=== PATIENT | male | born 1960 | race Caucasian/White ===

== ENCOUNTER 2017-08-18 20:28 | Emergency (ER) | payer OTHER, MEDICARE ==
[~2017-08-18 20:28] MED LIST: AMBIEN 10MG10 MG PO; CELEBREX200 MG PO; CENTRUM SILVER1 TA1 PO; COLCHICINE0.6 MG PO; COUMADIN 3 MG TA3 MG PO; COUMADIN 6 MG TA6 MG PO; CRESTOR10 MG PO; CYMBALTA60 MG PO; FLONASE120 SPRAY/ NASB; GLUCOSAMINE & C1 CAP PO; HYDROXYCHLOROQ200 MG PO; LOSARTAN POTASS25 MG PO; METOPROLOL SUCC50 M1 PO; NORVASC 5MG TAB5 MG PO; RAPAFLO8 MG PO; ROPINIROLE HYDRO4 MG PO; SYMBICORT 160/41 PUF INH; VITAMIN D31000 IU PO
--- NOTE | 2017-08-18 21:27 | ED NOSE COMPLAINT ---
History of Present Illness General Chief Complaint: Epistaxis/Nasal Foreign Body Stated Complaint: "UM COUPLE OF DAYS NOSE BLEEDS" Source: patient Exam Limitations: no limitations Vital Signs & Intake/Output Vital Signs & Intake/Output Vital Signs Date Time Temp Pulse Resp B/P B/P Pulse O2 O2 Flow FiO2 Mean Ox Delivery Rate 08/18 2334 98.3 74 20 126/71 96 Room Air 08/18 2133 Room Air 08/185 98.1 78 22 130/73 95 ED Intake and Output 08/19 0000 08/18 1200 Intake Total 0 Output Total Balance 0 Intake, Oral 0 Allergies Coded Allergies: MDX - Opioid (Opioid) (Severe, ANAPHYLAXIS 06/02/15) Reconcile Medications Amlodipine (Norvasc 5MG Tab) 5 MG TAB 1 TAB PO DAILY BP (Reported) Budesonide/Formoterol Fumara (Symbicort 160-4.5 Mcg Inhaler) 160 MCG/4.5 MCG PUF 2 PUF INH BID RESPIRATORY (Reported) Celecoxib (Celebrex) 200 MG CAP 1 CAP PO DAILY PAIN/INFLAMMATION (Reported) Cholecalciferol (Vitamin D3) (Unknown Strength) TAB (Unknown Dose) PO DAILY SUPPLEMENT (Reported) Chondroitin Sulf/Glucosamine (Glucosamine & Chondroitin) 1 CAP CAP 1 CAP PO DAILY SUPPLEMENT (Reported) Colchicine 0.6 MG TAB 1 TAB PO DAILY HEART (Reported) DULOXETINE HCL (Cymbalta) 60 MG ECC 1 CAP PO DAILY NERVE PAIN (Reported) Fluticasone Propionate (Flonase) 120 SPRAY/BOT SPR 1 SPRAY NASB DAILY RESPIRATORY (Reported) Hydroxychloroquine Sulfate 200 MG TAB 1 TAB PO BID RA (Reported) Losartan Potassium 25 MG TAB 1 TAB PO DAILY BP (Reported) Metoprolol Succinate (Metoprolol Succinate XL) [address] 1 TAB PO DAILY HEART (Reported) Multivitamin, Minerals, and (Centrum Silver) 1 TAB TAB 1 TAB PO DAILY SUPPLEMENT (Reported) ROPINIROLE HCL (Ropinirole Hydrochloride) 4 MG TAB 1 TAB PO QPM RESTLESS LEGS (Reported) Rosuvastatin Calcium (Crestor) 10 MG TAB 10 MG PO QAM CHOLESTEROL (Reported) Silodosin (Rapaflo) 8 MG CAP 1 CAP PO DAILY PROSTATE (Reported) Warfarin Sodium (Coumadin) 3 MG TAB 1 TAB PO AD BLOOD THINNER (Reported) Warfarin Sodium (Coumadin) 6 MG TAB 1 TAB PO AD BLOOD THINNER (Reported) Zolpidem Tartrate (Ambien 10MG) 10 MG TAB 1 TAB PO QPM SLEEP (Reported) Triage Note: PER PT NOSE BLEEDS SEVERE FOR 5-10 MINUTES 2 X YESTERDAY WENT TO [facility] LAST NIGHT VIA EMS BUT BY THE TIME THEY SAW ME IT HAD STOPPED, OCCURRED X 2 TODAY. SIGNIFICANT OTHER REPORTS "COPIOUS AMTS" NO ACTIVE BLEEDING AT PRESENT DENIES BLOOD THINNERS. PTALSO REPORTS RT HIP SUBLUXATION SAT ON FLOOR THIS AM D/T AMT OF BLEEDING WAS TRYING TO AIM IN THE TIOLET AND SUBLUXED RT HIP HX OF MULTIPLE HIP REPLACEMENTS Triage Nurses Notes Reviewed? yes Onset: Abrupt Timing: recent history Severity: severe HPI: Patient is a 56-year-old male with a past medical history of repaired thoracic aortic aneurysm approximately 2 years ago, rheumatoid arthritis with bilateral hip replacement status post avascular necrosis chronic back pain who presents emergency room stating that yesterday he had spontaneous nontraumatic bilateral nosebleeds were he states that he had significant bleeding unresolved where he was seen at [facility] patient states that prior to being evaluated his nosebleed had stopped and no intervention was done. Patient states that today he had 2 episodes of nosebleeds that resolved 20 minutes after onset. Denies any history of trauma denies any anticoagulation use Denies any significant history of nosebleeds States yesterday he had a resolved fever Denies any current headache dizziness lightheaded sensation He does state that during the nosebleed he may need bent position on the floor when he stood up and felt his right hip pop where he does not recall a significant dislocation or he felt "something tear" Since patient has been complaining of severe right localized hip pain. Patient was able to ambulate with canes on arrival (Juni Perry) Past History Travel History Traveled to [place] past 21 day No Medical History Any Pertinent Medical History? see below for history Neurological: NONE EENT: NONE Cardiovascular: DESCENDING THORACIC ANEUR Respiratory: NONE Gastrointestinal: NONE Hepatic: NONE Renal: nephrolithiasis Musculoskeletal: rheumatoid arthritis, 5 TOTAL HIP REPL Psychiatric: NONE Endocrine: NONE Surgical History Surgical History: AORTIC ANEURYSM REPAIR Psychosocial History What is your primary language Nepali Tobacco Use: Never used Family History Hx Contributory? No (Juni Perry) Review of Systems Review of Systems Constitutional: Reports: see HPI. EENTM: Reports: see HPI. Respiratory: Reports: no symptoms. Cardiovascular: Reports: no symptoms. GI: Reports: no symptoms. Genitourinary: Reports: no symptoms. Musculoskeletal: Reports: see HPI. Skin: Reports: no symptoms. Neurological/Psychological: Reports: no symptoms. Hematologic/Endocrine: Reports: no symptoms. Immunologic/Allergic: Reports: no symptoms. All Other Systems: Reviewed and Negative (Juni Perry) Physical Exam Physical Exam General Appearance: anxious Head: atraumatic Eyes: Bilateral: normal appearance, PERRL. Nose: normal inspection Mouth/Throat: normal mouth inspection, pharynx normal Neck: normal inspection Cardiovascular/Respiratory: normal breath sounds, normal peripheral pulses, regular rate/rhythm Neurologic/Psych: no motor/sensory deficits, awake, alert Skin: intact, normal color Comments: Right hip normal inspection generalized point tenderness noted limited range of motion noted (Juni Perry) Progress Differential Diagnoses I considered the following diagnoses in my evaluation of the patient: [Fracture, hip strain, anemia, coagulation disorder, anterior epistasis posterior epistasis ] Plan of Care: Orders Procedure Date/time Status Add-on Test (ER Only) 08/18 2222 Active TROPONIN LEVEL 08/18 2145 Complete PARTIAL THROMBOPLASTIN TIME 08/18 2145 Complete PROTHROMBIN TIME 08/18 2145 Complete COMPREHENSIVE METABOLIC PANEL 08/18 2145 Complete CBC WITHOUT DIFFERENTIAL 08/18 2145 Complete EKG 08/18 2145 Active Laboratory Tests 08/18/17 2215: Anion Gap 14, Estimated GFR > 60, BUN/Creatinine Ratio 20.0, Glucose 126 H, Calcium 9.3, Total Bilirubin 0.3, AST 43, ALT 65, Alkaline Phosphatase 68, Troponin I 0.01, Total Protein 6.4, Albumin 4.3, Globulin 2.1, Albumin/Globulin Ratio 2.0, PT 12.6 H, INR 1.20 H, APTT 24 L, CBC w Diff NO MAN DIFF REQ, RBC 4.21 L, MCV 95.2 H, MCH 32.5 H, MCHC 34.1, RDW 13.4, Plt Count ND, Gran % 64.7, Lymphocytes % 24.6, Monocytes % 7.3, Eosinophils % 2.6, Basophils % 0.8, Absolute Granulocytes 4.5, Absolute Lymphocytes 1.7, Absolute Monocytes 0.5, Absolute Eosinophils 0.2, Absolute Basophils 0.1 Patient on initial examination had no active bleeding to his nares, nares were patent unremarkable oropharynx exam Patient was offered pain medications while in the emergency room and declined. due to recurrence of significant nosebleeds per history that while patient was in the emergency room even though there was no active bleeding of the nares patient was provided with gauze packing with soaked from then with direct pressure to improve coagulation of nose in the future, I discussed with patient intently on to apply direct pressure with gauze if future currents of nose bleeds do occur. Patient has unremarkable x-rays of right hip Patient was strongly advised to follow-up with discharge instructions and plan and he will comply. Upon discharge patient looks well no apparent distress and will comply with discharge instructions Diagnostic Imaging: Viewed by Me: Radiology Read. Radiology Impression: no acute abnormality, no fracture Initial ED EKG: normal p-waves, normal QRS complex, 69 BPM,NSR Comments: PATIENT: ROSEANNA SPANGLER PRESENT AGE: 56 PATIENT ACCOUNT NO: [id number] : 60 LOCATION: [facility] ORDERING PHYSICIAN: Juni SALTER SERVICE DATE: 08/18/17 EXAM TYPE: RAD - XRY-HIP 2-3 VIEWS, RIGHT EXAMINATION: XR HIP, RIGHT CLINICAL INFORMATION: Right hip pain. COMPARISON: Right hip radiographs 03/05/2013. TECHNIQUE: Knee radiographs of the right hip. FINDINGS: Right hip arthroplasty is intact. Hardware is well affixed and well aligned. No signs of periprosthetic lucency or fracture. Stable small ossification adjacent to the superior acetabulum. Soft tissues are otherwise unremarkable. IMPRESSION: Intact right hip arthroplasty. DICTATED BY: Julito Bhat MD DATE/TIME DICTATED:08/18/172247 WATER CONTROL SUPERVISOR:GIL DATE/TIME TRANSCRIBED:08/18/172247 CONFIDENTIAL, DO NOT COPY WITHOUT APPROPRIATE AUTHORIZATION. (Ángel SALTER,Juni) Departure Departure Disposition: HOME OR SELF CARE Condition: Stable Clinical Impression Primary Impression: Bleeding nose Secondary Impressions: Right hip pain Referrals: Sherri MOSCOSO,Fantasma Cervantes (PCP/Family) Sarthak López MD Additional Instructions: As discussed on Sunday follow-up with your primary care doctor and/or orthopedic doctor for further evaluation treatment and please provide them with copies of blood work and x-ray findings provided to the emergency room, if nosebleed recurs applied with direct pressure with gauze and the tongue depressors provides in the emergency room, if bleeding does not stop after 20 minutes return to the emergency room. If symptoms worsen return to the emergency room. Follow-up on Sunday with ENT doctor ELISEO for further evaluation treatment Departure Forms: Customer Survey General Discharge Information (Ángel SALTER,Juni) PA/ENGINEERING AID Co-Sign Statement Statement: ED Attending supervision documentation- I saw and evaluated the patient. I have also reviewed all the pertinent lab results and diagnostic results. I agree with the findings and the plan of care as documented in the PA's/ENGINEERING AID's documentation. x I have reviewed the ED Record and agree with the PA's/ENGINEERING AID's documentation. [] Additions or exceptions (if any) to the PAs/ENGINEERING AID's note and plan are summarized below: [] (Julianne MOSCOSO,Roc)
[2017-08-18 22:22] LABS: ABSOLUTE BASOPHIL COUNT 0.1 /CUMM (0.0-0.2); ABSOLUTE EOSINOPHIL COUNT 0.2 /CUMM (0.0-0.7); ABSOLUTE GRANULOCYTE CT 4.5 /CUMM (1.4-6.5); ABSOLUTE LYMPH COUNT 1.7 /CUMM (1.2-3.4); ABSOLUTE MONOCYTE COUNT 0.5 /CUMM (0.10-0.60); BASOPHIL % 0.8 % (0.0-2.0); EOSINOPHIL % 2.6 % (0-5); GRANULOCYTE % 64.7 % (42.2-75.2); MEAN CORPUSCULAR HGB 32.5 PG (27.0-31.0); MEAN CORPUSCULAR HGB CONC 34.1 G/DL (33.0-37.0); MEAN CORPUSCULAR VOLUME 95.2 FL (80.0-94.0); RBC DISTRIBUTION WIDTH 13.4 % (11.5-14.5); RED BLOOD CELL CT 4.21 /CUMM (4.70-6.10); WHITE BLOOD CELL COUNT 6.9 /CUMM (4.8-10.8)
[2017-08-18 22:30] LABS: PT 12.6 SEC (9.4-12.5); PTT 24 SEC (25-37)
[2017-08-18 22:46] LABS: PLATELET COUNT ND /CUMM (130-400)
--- NOTE | 2017-08-18 22:53 | RADIOLOGY REPORT ---
EXAMINATION: XR HIP, RIGHT CLINICAL INFORMATION: Right hip pain. COMPARISON: Right hip radiographs 03/05/2013. TECHNIQUE: Knee radiographs of the right hip. FINDINGS: Right hip arthroplasty is intact. Hardware is well affixed and well aligned. No signs of periprosthetic lucency or fracture. Stable small ossification adjacent to the superior acetabulum. Soft tissues are otherwise unremarkable. IMPRESSION: Intact right hip arthroplasty.
[2017-08-18 23:34] VITALS: BP 126/71
== END 2017-08-18 23:35 ==
LOC: ERH 20:28
PROVIDERS: Physician Assistant
DX: R04.0 Epistaxis (principal); M25.551 Pain in right hip
CPT/HCPCS: 73502-RT; 93005; 93010